=== PATIENT | female | born 1955 | race Caucasian/White ===

== ENCOUNTER → 2018-01-28 15:17 | Outpatient (CLI) | payer BC, SELFPAY ==
[2018-01-28 15:45] LABS: Absolute Basophil Count 0.01 k/cumm (0.0-0.2); Absolute Eosinophil Count 0.02 k/cumm (0.0-0.7); Absolute Lymphocyte Count 1.35 k/cumm (1.2-3.4); Absolute Monocyte Count 0.08 k/cumm (0.11-0.7); Absolute Neutrophil Count 0.89 k/cumm (1.2-6.7); Basophils % 0.4; Eosinophils % 0.9; HCT 34.2 % (36.0-46.0); HGB 11.4 g/dL (12.0-15.5); Lymphocytes % 57.4; Mean Corp. HGB Concentration 33.3 g/dL (32.0-36.0); Mean Corpuscular Hemoglobin 34.7 pg (27.0-33.0); Mean Platelet Volume 9.4 fL (8.0-11.0); Monocytes % 3.4; Neutrophils % 37.9; Platelet Count 285 x1000/uL (130-400); RBC 3.29 m/cumm (4.00-5.20); RBC Distribution Width 15.3 % (11.7-14.6); White Blood Cell Count 2.35 k/cumm (4.4-10.8)
[2018-01-28 17:36] LABS: Diff Comment Diff Reviewed
== END ==
PROVIDERS: PCP Family Medicine; Visit Provider Internal Medicine Medical Oncology
DX: C50.911 Malignant neoplasm of unspecified site of right female breast (principal); Z17.0 Estrogen receptor positive status [ER+]
CPT/HCPCS: 36415; 85025

== ENCOUNTER 2019-11-12 22:16 | Outpatient (REF) | payer OTHER, SELFPAY ==
[2019-11-12 21:46] LABS: Bilirubin Negative (Negative); Blood Small (Negative); Clarity Cloudy (Clear); Glucose Negative (Negative); Ketones Negative (Negative); Leukocyte Esterase Small (Negative); Nitrite Negative (Negative); Specific Gravity 1.025 (1.005-1.025); Urobilinogen 0.2 EU/dL (Up TO 0.2); pH 5.5 (5-8)
[2019-11-12 21:55] LABS: WBC >50 HPF (0-5)
[2019-11-12 21:56] LABS: C & S Indicated? Yes
== END 2019-11-12 22:36 ==
LOC: LBN 22:16
PROVIDERS: PCP Family Medicine; Visit Provider Family Medicine
DX: N39.0 Urinary tract infection, site not specified (principal)
CPT/HCPCS: 87077; 81003; 81015; 87086; 87186

== ENCOUNTER 2020-05-16 02:35 | Outpatient (CLI) | payer BC, SELFPAY ==
[2020-05-18 19:04] LABS: Patient Race White; SARS-CoV-2 RNA Undetected (Undetected); SARS-CoV-2 Specimen Source Nasal
== END 2020-05-16 02:55 ==
PROVIDERS: PCP Family Medicine; Visit Provider Family Medicine
DX: Z20.828 Contact with and (suspected) exposure to other viral communicable diseases (principal)
CPT/HCPCS: U0003

== ENCOUNTER 2021-11-23 16:52 | Outpatient (REF) | payer MEDICARE, BC, SELFPAY ==
--- NOTE | 2021-11-23 15:00 | SKI_PTH ---
PATIENT: Verenice Roberts LOC: N U#:[id number] AGE/SX: 66/F ROOM: RE11/23/[address]: Radha Young : 1955 BED: DIS: 11/23/2021 SPEC #: [id number] RECD: 11/26/21 12:31 STATUS: JESU REGloria #: [id number] ARETHA: 11/23/21 15:[address]: Radha Young DEPT: Surgical Specimen RECD BY: Cecelia Mcfarland Tissues: 1 - SKIN BIOPSY(SHAVE/PUNCH) Procedures: SKIN LEVEL 4 Comments: [id number]
== END 2021-11-23 16:53 | disposition home or self-care (01) ==
LOC: LBN 16:52
PROVIDERS: PCP Family Medicine; Visit Provider Family Medicine
DX: L43.8 Other lichen planus
CPT/HCPCS: 88305

== ENCOUNTER 2022-04-04 16:48 | Outpatient (REF) | payer MEDICARE, BC, SELFPAY ==
--- NOTE | 2022-04-04 15:15 | PAPFT_PTH ---
PATIENT: Verenice Roberts LOC: [place] U#:[id number] AGE/SX: 66/F ROOM: RE04/04/[address]: Debora Cheema MD : 1955 BED: DIS: 04/04/2022 SPEC #: [id number] RECD: 04/04/22 17:53 STATUS: HARIBlanco REQ #: [id number] ARETHA: 04/04/22 15:[address]: Debora Cheema DEPT: [facility] Cytology RECD BY: Cecelia Mcfarland ENTERED: 04/04/22 18:03 SP TYPE: PAPFT OTHR DR: Radha Young Tissues: 1 - CX/ENDOCX FOR PAP SMEARS Procedures: PAP THIN PREP/[facility] Screening HPV DNA PROBE Comments: [id number]
== END 2022-04-04 16:49 | disposition home or self-care (01) ==
LOC: LBN 16:48
PROVIDERS: PCP Family Medicine; Visit Provider Obstetrics & Gynecology
DX: Z12.4 Encounter for screening for malignant neoplasm of cervix (principal); Z11.51 Encounter for screening for human papillomavirus (HPV); R87.610 Atypical squamous cells of undetermined significance on cytologic smear of cervix (ASC-US); N89.8 Other specified noninflammatory disorders of vagina; Z01.419 Encounter for gynecological examination (general) (routine) without abnormal findings
CPT/HCPCS: 88142; 87480; 87510; 87624; 87660

== ENCOUNTER 2022-04-18 15:50 | Outpatient (REF) | payer MEDICARE, BC, SELFPAY | END 2022-04-18 15:51 | disposition home or self-care (01) | LOC: LBN 15:50 | PROVIDERS: PCP Family Medicine; Visit Provider Obstetrics & Gynecology | DX: R30.0 Dysuria (principal) | CPT/HCPCS: 87077; 87086; 87186 ==

== ENCOUNTER 2023-01-15 10:12 | Outpatient (REF) | payer MEDICARE, BC, SELFPAY ==
[2023-01-15 11:40] LABS: Bilirubin Small (Negative); Blood Large (Negative); Clarity Cloudy (Clear); Glucose Negative (Negative); Ketones Trace mg/dL (Negative); Leukocyte Esterase Moderate (Negative); Nitrite Negative (Negative); Specific Gravity 1.025 (1.005-1.025)
[2023-01-15 11:50] LABS: C & S Indicated? Yes; WBC >50 HPF (0-5)
== END 2023-01-15 10:13 | disposition home or self-care (01) ==
LOC: LBN 10:12
PROVIDERS: PCP Family Medicine; Visit Provider Physician Assistant
DX: Z79.811 Long term (current) use of aromatase inhibitors (principal)
CPT/HCPCS: 87077; 81003; 81015; 87086; 87186

== ENCOUNTER 2023-11-26 14:58 | Outpatient (REF) | payer MEDICARE, BC, SELFPAY ==
[2023-11-26 17:46] LABS: Bilirubin Negative (Negative); Blood Negative (Negative); Clarity Clear (Clear); Glucose Negative (Negative); Ketones Negative (Negative); Leukocyte Esterase Trace (Negative); Nitrite Positive (Negative)
[2023-11-26 18:00] LABS: Bacteria Many HPF (Negative); C & S Indicated? Yes; Casts Negative LPF (Negative); Crystals Negative HPF (Negative); Epithelial Cells Rare HPF (Negative); Mucus Negative (Negative); RBC Negative HPF (0-2)
== END 2023-11-26 14:59 | disposition home or self-care (01) ==
LOC: LBN 14:58
PROVIDERS: PCP Family Medicine; Visit Provider Physician Assistant Medical
DX: R31.9 Hematuria, unspecified (principal); C50.011 Malignant neoplasm of nipple and areola, right female breast; Z79.899 Other long term (current) drug therapy
CPT/HCPCS: 87077; 81003; 81015; 87086; 87186

== ENCOUNTER 2024-04-08 03:09 | Outpatient (CLI) | payer MEDICARE, BC, SELFPAY ==
[2024-04-08 13:53] LABS: Absolute Basophil Count 0.02 10^3/uL (0.0-0.2); Absolute Monocyte Count 0.63 10^3/uL (0.1-0.8); Absolute Neutrophil Count 0.83 10^3/uL (1.2-6.7); Basophils % 0.7 %; Eosinophils % 6.9 %; HCT 30.6 % (36.0-46.0); HGB 9.6 g/dL (11.2-15.7); Lymphocytes % 41.7 %; MCH 32.8 pg (27.0-33.0); MCHC 31.4 % (32.0-36.0); MCV 104 fL (80-95); MPV 10.3 fL (8.0-11.0); Monocytes % 21.9 %; Neutrophils % 28.8 %; Platelet Count 161 10^3/uL (130-400); RBC 2.93 10^6/uL (3.93-5.22); RDW 17.5 % (11.7-14.6); RDW-SD 67.3 fL; WBC 2.88 10^3/uL (4.4-10.8)
[2024-04-08 14:13] LABS: Bilirubin Negative (Negative); Blood Negative (Negative); Clarity Clear (Clear); Glucose Negative (Negative); Ketones Negative (Negative); Leukocyte Esterase Trace (Negative); Nitrite Negative (Negative)
[2024-04-08 14:27] LABS: Bacteria Few HPF (Negative); C & S Indicated? Yes; Casts Negative LPF (Negative); Crystals Negative HPF (Negative); Epithelial Cells Rare HPF (Negative); Mucus Trace (Negative); RBC Negative HPF (0-2); WBC 20-50 HPF (0-5)
[2024-04-08 14:44] LABS: ALT 33 U/L (14-59); AST 47 U/L (15-37); Albumin 2.8 g/dL (3.4-5.0); Alkaline Phosphatase 319 U/L (46-116); Anion Gap 7.5 mmol/L (3-11); BUN 9 mg/dL (7-18); Bilirubin, Total 0.89 mg/dL (0.2-1.0); CO2 28.5 mmol/L (21.0-32.0); CREATININE 0.6 mg/dL (0.55-1.02); Calcium 8.9 mg/dL (8.5-10.1); Chloride 107 mmol/L (98-107); Glucose 92 mg/dL (74-106); Potassium 3.6 mmol/L (3.5-5.1); Sodium 143 mmol/L (136-145); Total Protein 6.1 g/dL (6.4-8.2)
[2024-04-08 14:54] LABS: Diff Comment Diff Reviewed; RBC Morphology Normal
[2024-04-10 14:11] LABS: Cancer Ag 15-3 727 U/mL (<30)
== END 2024-04-08 03:10 | disposition home or self-care (01) ==
LOC: LBO 03:09
PROVIDERS: PCP Family Medicine; Visit Provider Physician Assistant Medical
DX: Z79.899 Other long term (current) drug therapy (principal); C50.011 Malignant neoplasm of nipple and areola, right female breast
CPT/HCPCS: 36415; 80053; 86300; 87077; 81003; 81015; 85025; 87086

== ENCOUNTER 2024-05-26 08:06 | Outpatient (CLI) | payer MEDICARE, BC, SELFPAY ==
[2024-05-26 09:05] LABS: Abs Immature Grans 0.06 10^3/uL (0.0-0.06); Absolute Basophil Count 0.05 10^3/uL (0.0-0.2); Absolute Eosinophil Count 0.09 10^3/uL (0.0-0.7); Absolute Monocyte Count 0.12 10^3/uL (0.1-0.8); Absolute Neutrophil Count 4.47 10^3/uL (1.2-6.7); Basophils % 0.8 %; Eosinophils % 1.5 %; HCT 33.3 % (36.0-46.0); HGB 10.8 g/dL (11.2-15.7); Lymphocytes % 21.3 %; MCH 32.2 pg (27.0-33.0); MCHC 32.4 % (32.0-36.0); MCV 99 fL (80-95); Neutrophils % 73.4 %; Platelet Count 106 10^3/uL (130-400); RBC 3.35 10^6/uL (3.93-5.22); RDW 15.9 % (11.7-14.6); RDW-SD 58.5 fL; WBC 6.09 10^3/uL (4.4-10.8)
[2024-05-26 09:22] LABS: ALT 13 U/L (14-59); AST 45 U/L (15-37); Albumin 2.3 g/dL (3.4-5.0); Alkaline Phosphatase 221 U/L (46-116); Anion Gap 4.3 mmol/L (3-11); BUN 19 mg/dL (7-18); Bilirubin, Total 4.06 mg/dL (0.2-1.0); CO2 30.7 mmol/L (21.0-32.0); CREATININE 0.8 mg/dL (0.55-1.02); Calcium 10.9 mg/dL (8.5-10.1); Chloride 105 mmol/L (98-107); Estimated GFR 79.71 (mL/min/1.73m2); Glucose 119 mg/dL (74-106); Magnesium 1.8 mg/dL (1.8-2.4); PHOSPHORUS < 2.0 mg/dL (2.6-4.7); Potassium 3.8 mmol/L (3.5-5.1); Sodium 140 mmol/L (136-145); Total Protein 6.5 g/dL (6.4-8.2)
== END 2024-05-26 08:07 | disposition home or self-care (01) ==
LOC: LBO 08:07
PROVIDERS: PCP Family Medicine; Visit Provider Internal Medicine Medical Oncology
DX: C50.911 Malignant neoplasm of unspecified site of right female breast (principal); Z17.0 Estrogen receptor positive status [ER+]
CPT/HCPCS: 36415; 80053; 83735; 84100; 85025

== ENCOUNTER 2024-06-02 10:59 | Outpatient (CLI) | payer MEDICARE, BC, SELFPAY ==
[2024-06-02 15:26] LABS: Abs Immature Grans 0.02 10^3/uL (0.0-0.06); Absolute Basophil Count 0.02 10^3/uL (0.0-0.2); Absolute Eosinophil Count 0.07 10^3/uL (0.0-0.7); Absolute Lymphocyte Count 1.23 10^3/uL (1.2-3.4); Absolute Monocyte Count 0.88 10^3/uL (0.1-0.8); Absolute Neutrophil Count 2.74 10^3/uL (1.2-6.7); Basophils % 0.4 %; Eosinophils % 1.4 %; HCT 29.9 % (36.0-46.0); HGB 9.9 g/dL (11.2-15.7); Immature Grans % 0.4 %; Lymphocytes % 24.8 %; MCH 32.9 pg (27.0-33.0); MCHC 33.1 % (32.0-36.0); MCV 99 fL (80-95); MPV 10.2 fL (8.0-11.0); Monocytes % 17.7 %; Neutrophils % 55.3 %; Platelet Count 221 10^3/uL (130-400); RBC 3.01 10^6/uL (3.93-5.22); RDW 15.4 % (11.7-14.6); RDW-SD 55.1 fL; WBC 4.96 10^3/uL (4.4-10.8)
[2024-06-02 16:00] LABS: ALT 17 U/L (14-59); AST 37 U/L (15-37); Albumin 2.2 g/dL (3.4-5.0); Alkaline Phosphatase 194 U/L (46-116); Anion Gap 5.2 mmol/L (3-11); BUN 11 mg/dL (7-18); Bilirubin, Total 1.31 mg/dL (0.2-1.0); CO2 31.8 mmol/L (21.0-32.0); CREATININE 0.6 mg/dL (0.55-1.02); Calcium 9.5 mg/dL (8.5-10.1); Chloride 104 mmol/L (98-107); Glucose 110 mg/dL (74-106); Magnesium 1.6 mg/dL (1.8-2.4); PHOSPHORUS 2.7 mg/dL (2.6-4.7); Potassium 3.4 mmol/L (3.5-5.1); Sodium 141 mmol/L (136-145); Total Protein 5.6 g/dL (6.4-8.2)
== END 2024-06-02 11:00 | disposition home or self-care (01) ==
LOC: LBO 10:59
PROVIDERS: PCP Family Medicine; Visit Provider Internal Medicine Medical Oncology
DX: C50.911 Malignant neoplasm of unspecified site of right female breast (principal); Z17.0 Estrogen receptor positive status [ER+]
CPT/HCPCS: 36415; 80053; 83735; 84100; 85025

== ENCOUNTER 2024-06-07 03:07 | Outpatient (CLI) | payer MEDICARE, BC, SELFPAY ==
[2024-06-07 13:43] LABS: Abs Immature Grans 0.02 10^3/uL (0.0-0.06); Absolute Basophil Count 0.04 10^3/uL (0.0-0.2); Absolute Eosinophil Count 0.08 10^3/uL (0.0-0.7); Absolute Lymphocyte Count 1.27 10^3/uL (1.2-3.4); Basophils % 0.9 %; Eosinophils % 1.8 %; HCT 29.7 % (36.0-46.0); HGB 9.6 g/dL (11.2-15.7); Immature Grans % 0.5 %; Lymphocytes % 28.8 %; MCH 32.3 pg (27.0-33.0); MCHC 32.3 % (32.0-36.0); MCV 100 fL (80-95); MPV 9.5 fL (8.0-11.0); Monocytes % 22.7 %; Neutrophils % 45.3 %; Platelet Count 387 10^3/uL (130-400); RBC 2.97 10^6/uL (3.93-5.22); RDW 15.6 % (11.7-14.6); RDW-SD 56.6 fL; WBC 4.41 10^3/uL (4.4-10.8)
[2024-06-07 14:09] LABS: ALT 17 U/L (14-59); AST 48 U/L (15-37); Albumin 2.2 g/dL (3.4-5.0); Alkaline Phosphatase 215 U/L (46-116); Anion Gap 5.6 mmol/L (3-11); BUN 9 mg/dL (7-18); Bilirubin, Direct 0.8 mg/dL (0.0-0.2); Bilirubin, Total 1.06 mg/dL (0.2-1.0); CO2 31.4 mmol/L (21.0-32.0); CREATININE 0.6 mg/dL (0.55-1.02); Calcium 8.8 mg/dL (8.5-10.1); Chloride 107 mmol/L (98-107); GGT 79 U/L; Glucose 105 mg/dL (74-106); Magnesium 1.8 mg/dL (1.8-2.4); PHOSPHORUS 2.7 mg/dL (2.6-4.7); Sodium 144 mmol/L (136-145)
== END 2024-06-07 03:08 | disposition home or self-care (01) ==
LOC: LBO 03:07
PROVIDERS: PCP Family Medicine; Visit Provider Internal Medicine Medical Oncology
DX: C50.919 Malignant neoplasm of unspecified site of unspecified female breast (principal)
CPT/HCPCS: 36415; 80053; 82248; 82977; 83735; 84100; 85025